=== PATIENT | female | born 1950 | race Caucasian/White ===

== ENCOUNTER → 2022-03-11 | Outpatient (CLI) | payer MEDICARE ==
--- NOTE | 2022-03-11 14:12 | CT ---
EXAMINATION TYPE: CT chest abdomen wo/w con CT DLP: 1251.9 mGycm, Automated exposure control for dose reduction was used. 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 Oral contrast was administered. Two-dimensional coronal and sagittal reconstructions were obtained. Findings: CHEST: LUNGS/ PLEURA: 8 mm groundglass opacity within the anterior right upper lobe (series 6, image 12). Ca lcified granulomas within the bilateral lower lobe and lingula. Small left pleural effusion. AIRWAY: Patent and unremarkable.. HEART: Size within normal limits. No pericardial effusion. Dense three-vessel coronary arterial calci fications. Dense mitral valvular calcifications. MEDIASTINUM: No pathologically enlarged lymph nodes measuring more than 1 cm short axis. VASCULATURE: No aortic aneurysm. Atherosclerotic calcification of the aorta and its branches. MUSCULOSKELETAL: No acute osseous abnormalities. No aggressive osseous lesion. SOFT TISSUES/LYMPH NODES: Unremarkable. LOWER NECK: No significant findings. ABDOMEN: ABDOMEN LIVER: Unremarkable GALLBLADDER AND BILE DUCTS: The gallbladder is surgically absent. PANCREAS: Mild atrophy. SPLEEN: Unremarkable. ADRENAL GLANDS: Unremarkable. KIDNEYS AND URETERS: No evidence of hydronephrosis or renal calculus. The kidneys enhance symmetrical ly. No suspicious focal lesions. Nonspecific bilateral perinephric fat stranding. STOMACH AND BOWEL: Postsurgical changes from esophagectomy and gastric pull-up. No surrounding soft t issue to suggest local recurrence. Likely lipoma demonstrated within the third portion of the duodenu m measuring up to 1.4 cm. Moderate sized hiatal hernia containing a portion of nonobstructive colon. Colonic diverticulosis without evidence for acute diverticulitis. No evidence of bowel obstruction. PERITONEUM: No evidence of pneumoperitoneum or free fluid. VASCULATURE: Moderate atherosclerotic calcifications are present throughout the abdominal aorta and i ts branches. No abdominal aortic aneurysm. MUSCULOSKELETAL: No acute osseous abnormalities. No aggressive osseous lesion. LYMPH NODES: No gross evidence for lymphadenopathy. SOFT TISSUE/ABDOMINAL WALL: Unremarkable IMPRESSION: 1. Postsurgical changes from esophagectomy and gastric pull up. No definitive evidence for local rec urrence. 2. Groundglass nodule within the anterior right upper lobe which may represent infectious/inflammato ry process. Metastasis is not entirely excluded. Correlation with prior imaging is recommended otherw ise short-term follow-up examination in 3-6 months is recommended. 3. Small left pleural effusion. 4. Colonic diverticulosis. 5. Moderate sized hiatal hernia containing a portion of nonobstructed colon.
== END | disposition home or self-care (01) ==
LOC: RADCTMAIN 12:07
PROVIDERS: ATTEND Thoracic Surgery (Cardiothoracic Vascular Surgery)
DX: C15.9 Malignant neoplasm of esophagus, unspecified (principal); J90 Pleural effusion, not elsewhere classified; K57.30 Diverticulosis of large intestine without perforation or abscess without bleeding; K44.9 Diaphragmatic hernia without obstruction or gangrene; I34.2 Nonrheumatic mitral (valve) stenosis; R91.1 Solitary pulmonary nodule; Z98.890 Other specified postprocedural states
CPT/HCPCS: 82565; 84520; 71270; 74170; 36415; Q9967